=== PATIENT | female | born 1975 | race Caucasian/White ===

== ENCOUNTER 2024-04-22 19:25 | Emergency (ER) | payer OTHER ==
[~2024-04-22] VITALS: Ht 165.1 cm; Wt 72.6 kg
[2024-04-22 19:28] VITALS: BP 125/56; PULSE 104; RESP 16; TEMP 99.1; O2SAT 98
[2024-04-22] MEDS: KETOROLAC 30 MG/ML VIAL IM ONE (20:25)
[2024-04-22] MEDS: ONDANSETRON 4 MG ODT PO ONE (20:33)
[2024-04-22 20:44] LABS: FLU A ANTIGEN negative (NEGATIVE); FLU B ANTIGEN NEGATIVE (NEGATIVE)
[2024-04-22] MEDS ORDERED: FAMO-90 PO (20:48)
[2024-04-22] MEDS ORDERED: ONDA-188 SL (20:48)
[2024-04-22] MEDS ORDERED: ACET-10509 PO (20:48)
[2024-04-22] MEDS: FAMOTIDINE 20 MG TAB PO ONE (20:59)
== END 2024-04-22 21:00 | disposition home or self-care (01) ==
LOC: MED 19:25
DX: A08.4 Viral intestinal infection, unspecified (principal); Z20.822 Contact with and (suspected) exposure to COVID-19; E78.5 Hyperlipidemia, unspecified; Z79.899 Other long term (current) drug therapy
CPT/HCPCS: 87426; 87804; 96372; 99283; J1885; Q0162